=== PATIENT | female | born 1950 | race African-American/Black ===

== ENCOUNTER 2016-11-21 10:32 | Outpatient (CLI) | payer MEDICARE ==
[~2016-11-21] VITALS: Ht 165.1 cm; Wt 66.8 kg
[2016-11-21] MEDS ORDERED: GLUCOPHAGE500 MG PO (11:07)
[2016-11-21] MEDS ORDERED: ZOCOR20 MG PO (11:07)
[2016-11-21] MEDS ORDERED: ALENDRONATE SOD70 MG (11:10)
[2016-11-21] MEDS ORDERED: VITAMIN D31000 UNIT PO (11:12)
[2016-11-21 11:17] VITALS: Ht 165.1 cm; Wt 66.8 kg
[2016-11-21] MEDS ORDERED: OS-CAL500 MG PO (11:35)
--- NOTE | 2016-11-21 11:40 | NUR ---
1135 WATER SERVED DENIES PROBLEMS WITH INJECTION. DC INSTS REVIEWED RELEASED AMB.
== END 2016-11-21 11:44 | disposition home or self-care (01) ==
LOC: D.OPS 10:32
DX: M81.0 Age-related osteoporosis without current pathological fracture (principal)

== ENCOUNTER 2017-07-17 10:28 | Outpatient (CLI) | payer MEDICARE ==
[~2017-07-17] VITALS: Ht 165.1 cm; Wt 66.8 kg
[~2017-07-17 10:28] MED LIST: ALENDRONATE SOD70 MG; GLUCOPHAGE500 MG PO; OS-CAL500 MG PO; VITAMIN D31000 UNIT PO; ZOCOR20 MG PO
[2017-07-17 10:58] VITALS: BP 151/78; Ht 165.1 cm; Wt 66.8 kg
== END 2017-07-17 11:17 | disposition home or self-care (01) ==
LOC: D.OPS 10:28
DX: M81.0 Age-related osteoporosis without current pathological fracture (principal)

== ENCOUNTER 2018-01-30 09:40 | Outpatient (CLI) | payer MEDICARE ==
[~2018-01-30] VITALS: Ht 165.1 cm; Wt 64.5 kg
[2018-01-30 11:04] VITALS: BP 126/78; Ht 165.1 cm; Wt 64.5 kg
== END 2018-01-30 11:13 | disposition home or self-care (01) ==
LOC: D.OPS 09:40
DX: M81.0 Age-related osteoporosis without current pathological fracture (principal); Z01.812 Encounter for preprocedural laboratory examination

== ENCOUNTER → 2018-08-14 09:42 | Outpatient (CLI) | payer MEDICARE ==
[~2018-08-14] VITALS: Ht 165.1 cm; Wt 64.5 kg
[2018-08-14 10:46] VITALS: BP 145/64; Ht 165.1 cm; Wt 64.5 kg
== END | disposition home or self-care (01) ==
LOC: D.OPS 09:42
DX: M81.0 Age-related osteoporosis without current pathological fracture (principal)

== ENCOUNTER 2019-02-11 12:56 | Outpatient (CLI) | payer MEDICARE ==
[~2019-02-11] VITALS: Ht 165.1 cm; Wt 63.2 kg
[2019-02-11 13:17] VITALS: Ht 165.1 cm; Wt 63.2 kg
== END 2019-02-11 13:47 | disposition home or self-care (01) ==
LOC: D.OPS 12:56
PROVIDERS: ATTEND Emergency Medicine
DX: M81.0 Age-related osteoporosis without current pathological fracture (principal)